=== PATIENT | male | born 1970 | race Caucasian/White ===

== ENCOUNTER 2020-09-04 08:12 | Outpatient (NON) | payer BC, SELFPAY ==
[2020-09-05 00:37] LABS: SARS-CoV-2 RNA PCR Negative
== END 2020-09-04 08:13 ==
DX: R09.89 Other specified symptoms and signs involving the circulatory and respiratory systems (principal); Z20.828 Contact with and (suspected) exposure to other viral communicable diseases
CPT/HCPCS: 87635; C9803; U0003

== ENCOUNTER 2021-05-15 12:50 | Emergency (ER) | payer OTHER, SELFPAY ==
--- NOTE | ~2021-05-15 | XR_ITS ---
EXAMINATION: XR chest 1V portable 05/15/2021 13:15 INDICATION: Chest contusion. 4 foot fall. PROCEDURE: AP portable chest COMPARISON: 12/27/2015 FINDINGS: The lungs are clear. The cardiomediastinal silhouette is within normal limits. There are no pleural effusions. There is no pneumothorax suspected. Chronic healed right midclavicular fractu re. There are scattered calcified granulomata. IMPRESSION: 1: NO ACUTE CARDIOPULMONARY DISEASE. Reviewed, dictated and finalized at location A.
[2021-05-15 12:52] VITALS: BP 122/76; PULSE 58; RESP 12; O2SAT 99
[2021-05-15 13:02] VITALS: BP 119/72; PULSE 55; RESP 16; O2SAT 100
--- NOTE | 2021-05-15 13:16 | ECG_ITS ---
Measurements Intervals [place] Rate: 58 P: 32 [place]: 149 QRS: 15 QRSD: 90 T: 23 QT: 403 QTc: 396 Interpretive Statements SINUS BRADYCARDIA BASELINE ARTIFACT- I, III BORDERLINE ECG Electronically Signed On 05-15-2021 13:31:57 CDT by Aj Silver D.O.
[2021-05-15 13:17] VITALS: BP 115/73; PULSE 61; RESP 16; O2SAT 100
--- NOTE | 2021-05-15 13:30 | PC.NURSE ---
EDP De La Vega notified of patient's presentation. Per EDP Ceferino via verbal order read back, order chest CT with contrast and troponin baseline.
--- NOTE | 2021-05-15 13:38 | ED.HEATRA ---
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 Patient denies other injuries. Patient reports the height of the fall is approximately 8 feet. MD Complaint: head injury Related Data Allergies Allergy/AdvReac Type Severity Reaction Status Date / Time No Known Allergies Allergy Unverified 12/27/15 09:54 Review of Systems Review of Systems: Narrative: CONSTITUTIONAL: Denies fever, chills, or sweats. EYES: Denies visual changes, redness, or discharge. ENT: Denies rhinorrhea, congestion, sore throat, or otalgia. CARDIOVASCULAR: Denies chest pain, palpitations, or edema. RESPIRATORY: Denies cough or dyspnea. GASTROINTESTINAL: Denies abdominal pain, nausea, vomiting, or diarrhea. GENITOURINARY: Denies dysuria or hematuria. SKIN: Denies rash or itching. MUSCULOSKELETAL: Denies back pain, joint pain, or myalgia. NEUROLOGIC: Denies headache, numbness, or weakness. PSYCHIATRIC: Denies anxiety or depression. PMFSH Family History Family History Other Family history of cardiovascular disease Hypertension Social History Social History Smoking status: Never smoker Alcohol intake: current Exam Narrative: Exam Narrative: General appearance: Well-developed, well-nourished, looks in pain Skin: Normal color, left forehead abrasion, laceration Head: Normocephalic, left forehead abrasion/laceration Eyes: Clear conjunctiva ENT: Oropharynx normal, ears normal, nose normal Neck: Supple, nontender Chest and respiratory: Airway patent, no respiratory distress, no accessory muscle use, severe diffuse tenderness left chest, plus bruises and abrasions Heart: Regular rate/rhythm Abdomen: Soft, nontender, no organomegaly, quiet bowel sounds Vascular: Normal peripheral pulses, normal capillary refill. Musculoskeletal: Normal range of motion, nontender back Neurologic: Alert and oriented ?3, CYTOGENETIC TECHNOLOGIST is normal as tested, no gross motor deficit Course Course Emergency Course: Stable Consultations Consultation #1: , [facility] ED, who accepted patient transfer Date: 05/15/21 Time: 13:57 Vital Signs Vital signs: Vital Signs Pulse Rate 58 L 05/15/21 12:52 Respiratory Rate 12 05/15/21 12:52 Blood Pressure 122/76 05/15/21 12:52 Pulse Oximetry 99 05/15/21 12:52 Pulse Rate 58 L 05/15/21 12:52 Respiratory Rate 12 05/15/21 12:52 Blood Pressure 122/76 05/15/21 12:52 Pulse Oximetry 99 05/15/21 12:52 MDM - Head Injury Imaging Data Radiologist's impression: Impressions Chest X-Ray 05/15/21 13:23 IMPRESSION: 1: NO ACUTE CARDIOPULMONARY DISEASE. ECG Data EKG #1: Attestation: I personally reviewed and interpreted this ECG as follows: ECG completion date: 05/15/21 ECG completion time: 13:48 Prior ECG tracings: not available for review Interpretation: Sinus bradycardia at 58 bpm, borderline EKG. Critical Care Time Critical Care Time Critical Care Time: Yes Total Critical Care Time: 30 Di
[2021-05-15 13:41] LABS: Basophils Absolute Auto 0.1 K/mm3 (0.0-0.1); Basophils Percent Auto 0.6 % (0.2-1.2); Eosinophils Absolute Auto 0.1 K/mm3 (0-0.3); Eosinophils Percent Auto 1.3 % (0-4.4); Hematocrit 39.2 % (42.0-52.0); Hemoglobin 11.8 g/dL (14.0-18.0); Immature Granulocyte Absolute 0.04 K/mm3 (0.00-0.031); Immature Granulocyte Percent A 0.5 % (0-0.5); Lymphocytes Absolute Auto 3.02 K/mm3 (0.9-3.2); Lymphocytes Percent Auto 35.3 % (18.3-44.2); Mean Corpuscular HGB Conc 30.1 g/dl (32-36); Mean Corpuscular Hemoglobin 24.8 pg (26-34); Mean Corpuscular Volume 82.4 fl (80-100); Mean Platelet Volume 10.4 fl (7.4-10.4); Monocytes Absolute Auto 0.8 K/mm3 (0.1-0.6); Neutrophils Absolute Auto 4.6 K/mm3 (1.3-6.7); Neutrophils Percent Auto 53.3 % (45.5-73.1); Platelet Count Result 250 k/mm3 (150-375); Red Blood Count 4.76 M/mm3 (4.6-6.20); Red Cell Distribution Width 19.9 % (11.5-14.5); White Blood Count 8.6 K/mm3 (4.5-10.0)
[2021-05-15] MEDS: ONDANSETRON INJ 4 MG/2 ML VIAL IV PUSH (13:43)
[2021-05-15] MEDS: MORPHINE SULFATE (*CRX) 4 MG/ML INJ IV PUSH (13:44)
[2021-05-15 13:51] LABS: Anion Gap 6 mmol/L (8-16); Blood Urea Nitrogen 21 mg/dL (9-20); Calcium 9.2 mg/dL (8.4-10.2); Carbon Dioxide 25 mmol/L (22-30); Chloride 106 mmol/L (98-107); Estimated CRCL calculation 82 ml/min; Estimated Glomerular Filt Rate > 60; Glucose 108 mg/dL (75-110); Potassium 4.5 mmol/L (3.4-5.0); Sodium 137 mmol/L (137-145)
[2021-05-15 13:52] VITALS: BP 135/82; PULSE 71; RESP 12; O2SAT 100
--- NOTE | 2021-05-15 13:58 | PC.NURSE ---
Patient states he received a tetanus shot last year. TURNER De La Vega notified.
[2021-05-15 13:59] VITALS: PULSE 72
[2021-05-15 14:03] LABS: Troponin I < 0.012 ng/mL (0.000-0.034)
[2021-05-15 14:06] VITALS: BP 135/82; PULSE 62; RESP 16; O2SAT 99
== END 2021-05-15 14:06 | disposition short-term general hospital (02) ==
PROVIDERS: Emergency Provider Emergency Medicine
DX: S09.90XA Unspecified injury of head, initial encounter (principal); S29.8XXA Other specified injuries of thorax, initial encounter; R00.1 Bradycardia, unspecified; W24.0XXA Contact with lifting devices, not elsewhere classified, initial encounter
CPT/HCPCS: 36415; 71045; 80048; 84484; 85025; 93005; 96374; 96375; 99285; J2270; J2405; L0140

== ENCOUNTER 2023-06-20 04:30 | Observation (INO) | payer OTHER, SELFPAY ==
[2023-06-20] VITALS (31 sets, daily range): BP systolic 139–179; BP diastolic 68–107; PULSE 62–86; RESP 11–26; TEMP 36.1–36.9; O2SAT 91–100; BMI 34.0
--- NOTE | ~2023-06-20 | CT_ITS ---
EXAMINATION: CT abdomen pelvis w con DATE: 06/20/2023 06:13 INDICATION: Right upper abdominal pain TECHNIQUE: Computed tomography (CT) of the abdomen and pelvis was performed with 100 cc Omnipaque 350 intravenous contrast. The dose-length product was 1264.92 mGy-cm. Automated exposure control and ite rative reconstruction technique were employed. COMPARISON: CT pelvis dated 06/02/2011 FINDINGS: There is dependent atelectasis. Heart size normal. No significant pleural or pericardial ef fusion. Mildly enlarged retrocrural lymph node on the left. There are gallstones. There are stones in the cystic duct. No significant biliary dilatation. The liver, spleen, pancreas, adrenal glands and kidneys are unremarkable. Small fat-containing umbilical hernia. Normal appendix. Nonobstructive lili l pattern. No free air or free fluid. No abnormal pelvic masses or fluid collections. Moderate lumbar spondylosis. Mild osteoarthritis of the hips. IMPRESSION: 1. Cholelithiasis involving the gallbladder and cystic duct. Reviewed, dictated and finalized at location A.
--- NOTE | ~2023-06-20 | US_ITS ---
US abdomen limited INDICATION: Right upper quadrant abdominal pain PROCEDURE: Realtime right upper abdominal ultrasound. COMPARISON: No prior studies for comparison. FINDINGS: The pancreas is normal without focal mass or pancreatic ductal dilation. Liver echotexture is increased, consistent with fatty infiltration. There is normal directional flow in the portal ve in. Gallbladder wall is thickened. No definite gallstones or pericholecystic fluid. Common bile duct is not visualized. No sonographic Nicolas's sign. IMPRESSION: 1: Hepatic steatosis. 2: Gallbladder wall thickening. This could indicate interstitial edema, chronic liver disease or microsoft bi developer chris cholecystitis. Reviewed, dictated and finalized at location A. IMPRESSION: 1: Hepatic steatosis. 2: Gallbladder wall thickening. This could indicate interstitial edema, chronic liver disease or chronic cholecystitis.
--- NOTE | ~2023-06-20 | XR_ITS ---
XR chest 2V 06/20/2023 06:14 Indication: Chest pain Procedure: 2 view chest Comparison: 05/15/2021 Findings: Heart size normal. No focal air space disease, pulmonary edema, pleural effusion or suspect ed pneumothorax. Chronic healed right clavicular fracture. Chronic left acromioclavicular dislocation . No acute osseous abnormality. Impression: 1: No acute cardiopulmonary disease. Reviewed, dictated and finalized at location A. Impression: 1: No acute cardiopulmonary disease.
--- NOTE | 2023-06-20 04:37 | ECG_ITS ---
Measurements Intervals [place] Rate: 63 P: 26 [place]: 157 QRS: 1 QRSD: 97 T: 25 QT: 377 QTc: 386 Interpretive Statements SINUS RHYTHM NORMAL ECG COMPARED TO ECG 05/15/2021 13:16:34 SINUS RHYTHM NOW PRESENT Electronically Signed On 06-20-2023 7:18:29 CDT by Aj Silver D.O.
[2023-06-20] MEDS: ASPIRIN 81 MG CHEWABLE TABLET 324 MG PO (04:56)
[2023-06-20] MEDS: MORPHINE SULFATE (*CRX) 4 MG/ML INJ IV PUSH (04:56)
[2023-06-20] MEDS: ONDANSETRON INJ 4 MG/2 ML VIAL IV PUSH (04:57)
[2023-06-20] MEDS: SODIUM CHLORIDE 0.9% IV 1,000 ML 999 ML IV CONT ×2 (04:57→06:59)
--- NOTE | 2023-06-20 04:57 | ED.GENADULT ---
HPI - General Adult General Chief complaint: Chest Pain <Hai Peterson MD - Last Filed: 06/20/23 05:00> Stated complaint: chest pain <Hai Peterson MD - Last Filed: 06/20/23 05:00> Time Seen by Provider: 06/20/23 04:42 <Hai Peterson MD - Last Filed: 06/20/23 05:00> History of Present Illness HPI narrative: Patient 52-year-old gentleman presents general chief complaint of epigastric/chest pain. Patient reports that this evening he started having pain in the epigastric region reports that he had nausea with it vomiting. Patient reports no prior history of cardiac disease. Sitting interval noted palpation <Hai Peterson MD - Last Filed: 06/20/23 05:00> Related Data Home medications: Home Medications Medication Instructions Recorded Confirmed No Home Medications 06/20/23 06/20/23 <Hai Peterson MD - Last Filed: 06/20/23 05:00> Allergies/adverse reactions: Allergies Allergy/AdvReac Type Severity Reaction Status Date / Time No Known Allergies Allergy Verified 06/20/23 04:30 <Hai Peterson MD - Last Filed: 06/20/23 05:00> Review of Systems Review of Systems: A 10 system review of systems was completed on the patient and is negative except for what is stated in the HPI. Nursing and ancillary documentation was reviewed. <Hai Peterson MD - Last Filed: 06/20/23 05:00> [facility] Family History Family History: Family History Other Family history of cardiovascular disease Hypertension <Hai Peterson MD - Last Filed: 06/20/23 05:00> Social History Social History: Social History Smoking status: Never smoker Alcohol intake: current Lack of Transportation: No Lack of Food: Never True Current Housing: I Have Housing Concerned About Future Housing: No Difficulty Paying Gas/Electric Bills: No Difficulty Paying for Meds: No Currently Unemployed: No Education: Trade/Vocational Certificate Difficulty w/ Childcare or Family Care: No Spiritual care concerns: No <Hai Peterson MD - Last Filed: 06/20/23 05:00> Exam Narrative: GENERAL: Well-appearing, well-nourished, and in no acute distress. HEAD: Normocephalic, atraumatic. EYES: PERRLA and EOMI. ENT: Nares clear, no rhinorrhea or epistaxis. Mucous membranes moist. NECK: Supple. CHEST: Clear to auscultation. No respiratory distress. HEART: Regular rate and rhythm. No murmur heard. Normal peripheral pulses. ABDOMEN: Soft, tender to palpation in the epigastric region, nondistended, normal active bowel sounds. EXTREMITIES: Normal range of motion. No edema. SKIN: Warm, dry, no rash. NEURO: No focal deficits. Alert and oriented x3. PSYCH: Normal mood and affect. <Hai Peterson MD - Last Filed: 06/20/23 05:00> Course Reevaluation(s) Reevaluation #1: Patient care was signed out to me by Dr. Peterson with CT pending. CT scan did show evidence of cholelithiasis. Patient reports his pain is very poorly controlled. Patient was offered pain medication for home and close outpatient follow-up but patient prefers to be admitted for pain control. I discussed the case with the surgeon on-call and he was also comfortable with the patient attempting to go home with pain control. I attempted more medications for pain control and patient states that his pain is still poorly controlled. Surgery was recalled and patient was admitted to Dr. Vora. Patient was stable at time of admission. <Jhonatan Clayton MD - Last Filed: 06/20/23 15:02> Vital Signs Vital signs: Vital Signs Temperature 97.0 F L 06/20/23 04:37 Pulse Rate 67 06/20/23 04:37 Respiratory Rate 18 06/20/23 04:37 Blood Pressure 147/107 H 06/20/23 04:37 Pulse Oximetry 100
[2023-06-20 05:08] LABS: Basophils Absolute Auto 0.1 K/mm3 (0.0-0.1); Basophils Percent Auto 0.5 % (0.2-1.2); Eosinophils Absolute Auto 0.1 K/mm3 (0-0.3); Hematocrit 48.4 % (42.0-52.0); Hemoglobin 16.3 g/dL (14.0-18.0); Immature Granulocyte Absolute 0.05 K/mm3 (0.00-0.031); Immature Granulocyte Percent A 0.5 % (0-0.5); Lymphocytes Absolute Auto 2.55 K/mm3 (0.9-3.2); Lymphocytes Percent Auto 26.4 % (18.3-44.2); Mean Corpuscular HGB Conc 33.7 g/dl (32-36); Mean Corpuscular Hemoglobin 32.3 pg (26-34); Mean Platelet Volume 10.6 fl (7.4-10.4); Monocytes Percent Auto 9.8 % (2.6-8.5); Neutrophils Percent Auto 61.8 % (45.5-73.1); Platelet Count Result 207 k/mm3 (150-375); Red Blood Count 5.04 M/mm3 (4.6-6.20); Red Cell Distribution Width 13.9 % (11.5-14.5); White Blood Count 9.7 K/mm3 (4.5-10.0)
[2023-06-20] MEDS: HYDROmorphone HCL INJ (*CRX) 1 MG/ML SYR IV PUSH ×5 (05:15→16:24)
[2023-06-20 05:19] LABS: Alanine Aminotransferase 33 U/L (6-50); Albumin Level 4.7 g/dL (3.5-5.1); Alkaline Phosphatase 104 U/L (38-126); Anion Gap 10 mmol/L (8-16); Aspartate Amino Transferase 31 U/L (17-59); Bilirubin,Total 1.1 mg/dL (0.2-1.3); Blood Urea Nitrogen 25 mg/dL (9-20); Calcium 9.1 mg/dL (8.4-10.2); Carbon Dioxide 27 mmol/L (22-30); Chloride 101 mmol/L (98-107); Estimated CRCL calculation 90 ml/min; Estimated Glomerular Filt Rate > 60; Glucose 120 mg/dL (65-110); Lipase 58 U/L (23-300); Potassium 4.2 mmol/L (3.4-5.0); Sodium 138 mmol/L (137-145)
[2023-06-20 05:29] LABS: Troponin I < 0.012 ng/mL (0.000-0.034)
[2023-06-20 06:12] LABS: Prothrombin Time 13.5 Seconds (11.1-14.7)
[2023-06-20 06:13] LABS: Partial Thromboplastin Time 26.4 SECONDS (22.3-36.8)
[2023-06-20] MEDS: HYDROmorphone HCL INJ (*CRX) 1 MG/ML SYR (06:58)
--- NOTE | 2023-06-20 07:02 | PC.NURSE ---
pts pain is difficult to control
[2023-06-20] MEDS: HYDROmorphone HCL INJ (*CRX) 1 MG/ML SYR 0.5 MG IV PUSH (10:09)
--- NOTE | 2023-06-20 13:00 | ADMGEN ---
This patient, Fransisco Allen, was admitted to 3 [facility] Surg Room 331-01 at 1121. Patient/family oriented to hospital policies and general routines including ID bracelet, bed and alarms, visiting hours, pain management, procedures, bathroom and other care routines, personal items, smoking policy, room service/diet, and visiting hours. Information on how to activate the Rapid Response Team has been discussed. Patient/Family are encouraged to report perceived risks to care and to ask questions if they do not understand what they are told or what they should do.
[2023-06-20] MEDS: PIPERACILLN/TAZ 3.375GM/NS50ML 3.375 GM/50 ML BAG IVPB ×2 (16:24→20:48)
[2023-06-20] MEDS: LACTATED RINGERS 1,000 ML 130 ML IV CONT (16:25)
[2023-06-20] MEDS: FAMOTIDINE 20 MG/2 ML VIAL IV PUSH (20:49)
[2023-06-21] VITALS (13 sets, daily range): BP systolic 110–152; BP diastolic 58–77; PULSE 60–71; RESP 12–18; TEMP 35.7–37.7; O2SAT 94–100
[2023-06-21] MEDS: LACTATED RINGERS 1,000 ML 130 ML IV CONT (01:13)
[2023-06-21] MEDS: PIPERACILLN/TAZ 3.375GM/NS50ML 3.375 GM/50 ML BAG IVPB ×2 (03:39→09:36)
[2023-06-21 07:22] LABS: Basophils Percent Auto 0.5 % (0.2-1.2); Eosinophils Absolute Auto 0.1 K/mm3 (0-0.3); Hematocrit 44.9 % (42.0-52.0); Hemoglobin 15.1 g/dL (14.0-18.0); Immature Granulocyte Absolute 0.03 K/mm3 (0.00-0.031); Immature Granulocyte Percent A 0.4 % (0-0.5); Lymphocytes Absolute Auto 2.36 K/mm3 (0.9-3.2); Lymphocytes Percent Auto 29.6 % (18.3-44.2); Mean Corpuscular HGB Conc 33.6 g/dl (32-36); Mean Corpuscular Hemoglobin 32.3 pg (26-34); Mean Corpuscular Volume 96.1 fl (80-100); Mean Platelet Volume 10.8 fl (7.4-10.4); Monocytes Absolute Auto 0.9 K/mm3 (0.1-0.6); Monocytes Percent Auto 10.7 % (2.6-8.5); Neutrophils Absolute Auto 4.6 K/mm3 (1.3-6.7); Neutrophils Percent Auto 57.8 % (45.5-73.1); Platelet Count Result 180 k/mm3 (150-375); Red Blood Count 4.67 M/mm3 (4.6-6.20); Red Cell Distribution Width 13.6 % (11.5-14.5)
[2023-06-21 07:26] LABS: Lipase 30 U/L (23-300)
--- NOTE | 2023-06-21 07:52 | WPDHPUPDATE1 ---
History and Physical Update Update Date/Time: 06/21/23 07:52 History and Physical has been reviewed, including an updated exam of the patient. There are NO changes in the patient's condition. Risks, benefits, and alternatives have been discussed and questions answered. Patient agrees to proceed with procedure.
--- NOTE | 2023-06-21 07:53 | PM.PNGS ---
Progress Note: A&P Assessment and Plan (1) Cholelithiasis: Code(s): K80.20 - Calculus of gallbladder without cholecystitis without obstruction Status: Acute Assessment and Plan: Patient was admitted to the hospital due to intractable epigastric right upper quadrant pain. Imaging showed no obvious acute cholecystitis but there was some thickening of the gallbladder wall suggestive of possible chronic inflammatory changes versus early acute cholecystitis. Gallstones were noted on CT scan but not on ultrasound. Liver enzymes are normal. We will go ahead proceed without a laparoscopic cholecystectomy, possible open cholecystectomy today. Risks, benefits, indications, and expected outcomes were discussed with the patient and/or family members. Specific risks to include bleeding and possible need for blood transfusion, infection, bile leak, injury to other organs, common bile duct injury, and conversion to open cholecystectomy has been discussed. I have answered all their questions and they agreed to proceed with surgery as outlined above. (2) Biliary colic: Code(s): K80.50 - Calculus of bile duct without cholangitis or cholecystitis without obstruction Status: Acute Assessment and Plan: Due to gallstones. As above Subjective Subjective Date/Time Seen: 06/21/23 07:53 Interval history: Patient is better today but still having some right upper quadrant pain. No nausea or vomiting overnight. No fever overnight. White blood cell count is normal and liver enzymes are normal today. Review of Systems Review of Systems: The remainder of the review of systems to include constitutional, HEENT, cardiovascular, respiratory, GI, , integumentary, musculoskeletal, endocrine, immunologic, hematologic, psychiatric, and neurologic are all negative except for which is mentioned above in the HPI. Exam Const: General: comfortable and no acute distress HENMT: Ears: TM's normal bilaterally Face/Nose/Sinus: Normal nares present Mouth: Yes moist mucous membranes Eyes: General: appearance normal, both eyes and all related structures Sclera: sclerae normal Pupils: Equal, round and reactive pupils present EOM: EOMs intact bilaterally Neck: Neck: supple and no JVD Resp: Effort & Inspection: normal respiratory effort Auscultation: clear to auscultation bilaterally Cardio: Rate: regular rate Rhythm: regular rhythm GI: GI Palp: Yes Soft to palpation Other: Mild epigastric and right upper quadrant tenderness. Gallbladder is not palpable. No generalized peritoneal signs. Skin: General skin exam: normal color and no rashes or lesions noted Neuro: General: gait normal Speech: normal speech Motor exam (neuro): 5/5 motor strength present throughout and Motor abnormalites present Sensory Exam: normal sensation Extrem: General: normal to inspection Psych: Mental Status: mental status grossly normal Affect: normal affect Objective Data Vital Signs Vital Signs: Vital Signs - 24 hr 06/20/23 08:00 06/20/23 08:15 06/20/23 08:38 Temperature Pulse Rate 68 70 76 Respiratory Rate 12 12 14 Blood Pressure Pulse Oximetry 98 96 93 Oxygen Delivery 06/20/23 08:45 06/20/23 09:00 06/20/23 09:20 Temperature Pulse Rate 76 71 67 Respiratory Rate 14 13 18 Blood Pressure Pulse Oximetry 91 94 97 Oxygen Delivery 06/20/23 09:30 06/20/23 09:45 06/20/23 10:00 Temperature Pulse Rate 69 68 64 Respiratory Rate 14 14 14 Blood Pressure 155/91 H Pulse Oximetry 99 99 99 Oxygen Delivery 06/20/23 11:04 06/20/23 11:12 06/20/23 11:40 Temperature 36.4 C Pulse Rate 64 86 72 Respiratory Rate 14 16 16 Blood Pressure 159/74 H 159/74 H 140/68 Pulse Oximetry 95 99 99 Oxygen Delivery 06/20/23 15:00 06/20/23 16:49 06/20/23 20:00 Temperature 36.6 C Pulse Rate 63 Respiratory Rate 20 Blood Pressure 147/80 H Pulse Oximetry 98 Oxygen Delivery Room Air
--- NOTE | 2023-06-21 08:44 | WPDANESEPPF ---
Anes - Initial Pre Proc Eval Procedure: Operation Date: 06/21/23 08:30 Proposed Procedures p Laparoscopic Cholecystectomy - Washington Vora MD Date/Time: 06/21/23 08:44 Surgeon: Washington Vora MD Pre Op Diagnosis: Biliary Colic, Cholelithiasis Patient Data Age: 52 Gender: M Height: 1.83 m Weight: 113.6 kg Last Vital Signs Temp 36.5 C 06/21/23 06:00 Pulse 62 06/21/23 06:00 Resp 18 06/21/23 06:00 BP 152/73 H 06/21/23 06:00 Pulse Ox 99 06/21/23 06:00 O2 Del Method Room Air 06/20/23 20:00 Allergies Allergy/AdvReac Type Severity Reaction Status Date / Time No Known Allergies Allergy Verified 06/20/23 04:30 Home Medications Medication Instructions Recorded Confirmed Type No Home Medications 06/20/23 06/20/23 History Laboratory Tests 06/21/23 06:17 WBC 8.0 K/mm3 (4.5-10.0) RBC 4.67 M/mm3 (4.6-6.20) Hgb 15.1 g/dL (14.0-18.0) Hct 44.9 % (42.0-52.0) MCV 96.1 fl (80-100) MCH 32.3 pg (26-34) MCHC 33.6 g/dl (32-36) RDW 13.6 % (11.5-14.5) Plt Count 180 k/mm3 (150-375) MPV 10.8 H fl (7.4-10.4) Immature Gran % (Auto) 0.4 % (0-0.5) Neut % (Auto) 57.8 % (45.5-73.1) Lymph % (Auto) 29.6 % (18.3-44.2) [place] % (Auto) 10.7 H % (2.6-8.5) Eos % (Auto) 1.0 % (0-4.4) Baso % (Auto) 0.5 % (0.2-1.2) Lymph # (Auto) 2.36 K/mm3 (0.9-3.2) [place] # (Auto) 0.9 H K/mm3 (0.1-0.6) Eos # (Auto) 0.1 K/mm3 (0-0.3) Baso # (Auto) 0.0 K/mm3 (0.0-0.1) Abs Immat Gran (auto) 0.03 K/mm3 (0.00-0.031) Absolute Neuts (auto) 4.6 K/mm3 (1.3-6.7) Absolute Nucleated RBC 0.0 K/mm3 (0.0-0.012) Nucleated RBC % 0.0 % (0.0-0.2) Lipase 30 U/L (23-300) Blood Type O Positive Antibody Screen Negative Patient hx anesthesia problems: none Family hx anesthesia problems: none Results Review: All pre-operative results and documents have been reviewed as part of the pre-operative evaluation. [facility] Family History Family History Other Family history of cardiovascular disease Hypertension Social History Social History Smoking status: Never smoker Alcohol intake: current Lack of Transportation: No Lack of Food: Never True Current Housing: I Have Housing Concerned About Future Housing: No Difficulty Paying Gas/Electric Bills: No Difficulty Paying for Meds: No Currently Unemployed: No Education: Trade/Vocational Certificate Difficulty w/ Childcare or Family Care: No Spiritual care concerns: No Anes - Eval Final PreProcedure Day of Procedure 06/21/23 08:44 Patient weight: obese Heart: regular rate and rhythm Lungs: clear to auscultation Airway: Mallampati scale class II Neurological: alert and oriented Last oral intake: >/= 8 hours ASA classification: II Emergent: no Anesthetic plan: proceed Anesthesia type and monitoring: general ETT and standard monitoring Results Review: All pre-operative results and documents have been reviewed as part of the pre-operative evaluation. Informed Consent: The patient's anesthetic plan and its attendant risks and benefits were discussed with the patient/family/POA. Questions were solicited and answers provided to the satisfaction of the patient/family/POA.
[2023-06-21] MEDS: BUPivacaine HCL 0.5% PF 30 ML VIAL 15 ML INFILTRATE (09:38)
[2023-06-21] MEDS: LIDO 1%/EPINEPHRINE 1:100,000 50 ML VIAL 15 ML INFILTRATE (09:40)
[2023-06-21] MEDS: KETOROLAC 30 MG/ML VIAL (*BKC) IV PUSH (10:18)
[2023-06-21] MEDS: LACTATED RINGERS 1,000 ML 30 ML IV CONT (10:29)
--- NOTE | 2023-06-21 10:37 | W.PM.PROC2 ---
Procedure Note - Detailed Date of Procedure 06/21/23 Pre-op Diagnosis Biliary Colic, Cholelithiasis Post-op Diagnosis Other (Acute cholecystitis secondary to cholelithiasis) Procedure Performed Laparoscopic cholecystectomy Surgeon Washington Vora MD Dobby Loom Fixer Sheila Hendricks, ENERGY TRADING ANALYST Anesthesia General Indications Patient is a 52-year-old white male admitted to the hospital yesterday with a several hour history of severe epigastric right upper abdominal pain. His pain was intractable in the emergency room even though he had a normal white blood cell count and liver enzymes were normal. CT scan did show gallstones within the gallbladder abdominal ultrasound showed some mild gallbladder wall thickening but no obvious evidence of acute cholecystitis. He presents now for an urgent laparoscopic cholecystectomy. Findings The gallbladder was distended and mildly edematous. Definitely was some degree of acute cholecystitis. Patient had a large amount of visceral adipose tissue and the gallbladder was enveloped within a layer of fatty tissue which was not the omentum. Description of Procedure After informed consent was obtained patient brought to the operating room was placed supine position and then general endotracheal anesthesia was administered. The abdomen was then prepped and draped in usual sterile fashion. A time-out was performed correctly identifying the patient as well as procedure to be performed he was already on scheduled IV antibiotics. I then proceeded to enter the abdomen left upper quadrant using 5mm Optiview port. Once inside the abdomen insufflated to adequate pneumoperitoneum of 15mm of CO2. No adhesions around the umbilicus I placed a 5mm periumbilical trocar port as well as a 10mm epigastric trocar port and 2 5mm right lateral subcostal trocar ports all under direct visualization. The omentum was initially draped over the right lobe of the liver and the gallbladder. This was then bluntly retracted down to the lower portions of the abdomen I could finally see the gallbladder. The gallbladder was distended and had some edema of the gallbladder wall but also a layer of visceral adipose tissue developing the gallbladder which was not the omentum. With laparoscopic grasper was able to hold the gallbladder at the dome and elevated gallbladder with a right half liver towards the right shoulder. A 2nd grasper used hold gallbladder at the infundibulum. I then proceeded to strip down the generous visceral adipose tissue and peritoneum off of the infundibular gallbladder. The cystic duct was then identified was dissected out circumferentially. Cystic artery identified and dissected out circumferentially as well. Posterior wall the gallbladder infundibulum dissected free of the liver internal critical view was obtained. At this point I placed 2 clips proximal cystic duct and 2 clips distally high on infundibular gallbladder. The cystic duct was divided with Endo Paddy. In similar fashion cystic artery and clipped and divided as well. The gallbladder was then resected off the liver electrocautery. There was some spillage of bile during this dissection. Once the gallbladder was completely freed from the liver is placed into an Endo-Catch bag and brought out through the epigastric port site. The gallbladder and contents were sent to pathology for examination. I then irrigated out the right upper quad the abdomen gallbladder fossa copious sterile saline solution. An aspirated the fluid until all the bilious fluid was aspirated. I checked once more hemostasis was good liver bed. I then removed all the trocar ports under visualization all port sites appeared hemostatic. I then allowed the abdomen decompressed. I then irrigated out the port sites sterile saline solution and then the port site at the epigastric region the abdomen was then closed utilizing 0 Vicryl suture placed in a figure-eight fashion. The skin edges all the port sites were approximated
--- NOTE | 2023-06-21 10:43 | PM.IMHP ---
H&P: HPI History of Present Illness Date/Time: 06/20/23 10:43 Chief Complaint: Right upper quadrant abdominal pain, cholelithiasis Narrative: Patient is a 52 year white male presents to the emergency room with Willian history of severe epigastric and right upper quadrant abdominal pain. He also had episodes of nausea vomiting. He admitted to having some episodes of right upper quadrant abdominal pain associated with eating over the past several weeks to be almost up to a year. Today was the worst that he has had pain it did not resolve. Workup in the emergency room showed normal white blood cell count. Liver enzymes were normal. CT scan abdomen pelvis was performed showed a dilated appendix with gallstones but no obvious evidence of gallbladder wall thickening or acute cholecystitis. Abdominal ultrasound was then performed showing gallbladder wall thickening suggestive of acute cholecystitis. He was given multiple doses IV pain medications in the emergency room and his pain was still uncontrolled. For this reason was admitted to the hospital for IV pain medications and IV antibiotics. Review of Systems Review of Systems: The remainder of the review of systems to include constitutional, HEENT, cardiovascular, respiratory, GI, , integumentary, musculoskeletal, endocrine, immunologic, hematologic, psychiatric, and neurologic are all negative except for which is mentioned above in the HPI. [facility] Family History Family History Other Family history of cardiovascular disease Hypertension Social History Social History Smoking status: Never smoker Alcohol intake: current Lack of Transportation: No Lack of Food: Never True Current Housing: I Have Housing Concerned About Future Housing: No Difficulty Paying Gas/Electric Bills: No Difficulty Paying for Meds: No Currently Unemployed: No Education: Trade/Vocational Certificate Difficulty w/ Childcare or Family Care: No Spiritual care concerns: No Meds Home Medications and Allergies Home Medications Medication Instructions Recorded Confirmed Type No Home Medications 06/20/23 06/20/23 History Allergies Allergy/AdvReac Type Severity Reaction Status Date / Time No Known Allergies Allergy Verified 06/20/23 04:30 Vital Signs Vital Signs - 24 hr 06/20/23 11:04 06/20/23 11:12 06/20/23 11:40 Temperature 36.4 C Pulse Rate 64 86 72 Respiratory Rate 14 16 16 Blood Pressure 159/74 H 159/74 H 140/68 Pulse Oximetry 95 99 99 Oxygen Delivery Oxygen Flow Rate 06/20/23 15:00 06/20/23 16:49 06/20/23 20:00 Temperature 36.6 C Pulse Rate 63 Respiratory Rate 20 Blood Pressure 147/80 H Pulse Oximetry 98 Oxygen Delivery Room Air Room Air Oxygen Flow Rate 06/20/23 22:00 06/21/23 06:00 06/21/23 10:29 Temperature 36.9 C 36.5 C 37.7 C H Pulse Rate 70 62 60 Respiratory Rate 20 18 12 Blood Pressure 161/75 H 152/73 H 110/58 L Pulse Oximetry 99 99 98 Oxygen Delivery Simple Face Mask Oxygen Flow Rate 8 06/21/23 10:35 06/21/23 08:00 Temperature Pulse Rate 65 Respiratory Rate 12 Blood Pressure 124/64 Pulse Oximetry 100 Oxygen Delivery Simple Face Mask Room Air Oxygen Flow Rate 10 H&P: Results Labs Labs: Short CBC 06/21/23 Range/Units 06:17 WBC 8.0 (4.5-10.0) K/mm3 Hgb 15.1 (14.0-18.0) g/dL Hct 44.9 (42.0-52.0) % Plt Count 180 (150-375) k/mm3 Assessment and Plan Assessment and plan (1) Cholelithiasis: Code(s): K80.20 - Calculus of gallbladder without cholecystitis without obstruction Status: Acute Assessment and Plan: Patient has gallstones noted on CT scan. Objective results to include CT scan imaging and labs results show no obvious objective evidence of acute cholecystitis however he is having severe intractable pain in the right upper qu
[2023-06-21] MEDS: FAMOTIDINE 20 MG TABLET PO (12:21)
[2023-06-22 00:26] VITALS: BP 131/66; PULSE 64; RESP 14; TEMP 37; O2SAT 97
[2023-06-22 05:00] VITALS: BP 152/77; PULSE 58; RESP 14; TEMP 36.3; O2SAT 100
--- NOTE | 2023-06-22 08:14 | PM.DS ---
DS: Admitting Diagnosis Discharge Date June 22, 2023 Admitting Diagnosis Biliary colic and cholelithiasis DS: Discharge Diagnosis Discharge Diagnosis (1) Acute cholecystitis due to biliary calculus: Code(s): K80.00 - Calculus of gallbladder with acute cholecystitis without obstruction Status: Acute Assessment and Plan: Acute cholecystitis resolved after laparoscopic cholecystectomy. Doing well to be discharged home today. No need for antibiotics at home after surgery. DS: Summary Hospital Course Reason for hospitalization: Cholecystitis Hospital Course: Patient can the [facility] on June 20, 2023 complaining of severe right upper quadrant and epigastric abdominal pain. Cardiac workup was negative the emergency room. He stated that having pain for several months intermittently in this area but not enough to bring him to the emergency room. Workup in the emergency room showed gallstones by CT scan abdominal ultrasound showed thickening of the gallbladder wall suggesting possible acute cholecystitis. Liver enzymes were normal and white blood cell count was normal because he was having intractable pain in the emergency room after multiple doses of Dilaudid he was admitted to the hospital. He continued to doses of Dilaudid in the hospital was kept NPO and start IV and IV fluids. He was started on IV antibiotics. The day after admission he was then taken to the operating room where he was underwent a uncomplicated laparoscopic cholecystectomy. He did have mild acute cholecystitis. Postoperatively his course and recovery was uneventful he was transferred back to surgical floor. On surgical floor he tolerated dilator at that evening without nausea. He did have pain and is incisions but refused to take any narcotic pain medications. He was able to get up and ambulate to the bathroom without difficulty. Postop day 1 he was eating a regular diet without any pain with eating or nausea. It was set to be discharged home on postop day 1 in improved condition. Status at Discharge Functional status at discharge: independent ambulation Overall status at discharge: patient is back to baseline Time Spent with Patient Time attestation: Total time spent providing and/or coordinating discharge services: Time spent: Less than 30 minutes Exam Const: General: cooperative and healthy appearing Orientation/consciousness: oriented to person and oriented to place Resp: Effort & Inspection: normal respiratory effort and able to speak in complete sentences Cardio: Rate: regular rate Rhythm: regular rhythm GI: Other: Abdomen soft and nondistended. Port site incisions are healing well without any redness or drainage. Expected mild tenderness to palpation but no severe tenderness in right upper quadrant. Neuro: General: patient oriented x3 Cranial nerves: Yes CN's II-XII intact bilaterally Psych: Appearance: grossly normal and well kempt Mental Status: mental status grossly normal DS: Data Data Completed and Pending Pending studies at discharge: Pending at discharge 06/21/23 09:47 Surgical [PTH] Routine Discharge Plan Discharge Attending physician on discharge: Washington Vora Consulting providers: Bill Barber Discharging Clinician: Washington Vora Patient Disposition: Home, Self-Care Activity: may shower Diet: as tolerated Wound Care Instructions: remove dressing to shower Discharge Instructions: May discharge home when stable. Follow up with Dr. Vora in the office in 2 weeks. Patient to call [phone] for an appointment. May shower in 24hours but do not soak incisions under water for 2 weeks. No lifting more than 10 to 15 lb for 2 weeks. May advance diet as tolerated. No driving for at least 3 days or until no longer taking any narcotic pain medication. Resume all home medications. Prescription for narcotic pain medicines will be sent to the patient's pharmacy if needed. Hemanth
[2023-06-22 08:31] VITALS: O2SAT 97
[2023-06-22] MEDS: ACETAMINOPHEN 500 MG TABLET 1000 MG PO (09:38)
--- NOTE | 2023-06-22 14:25 | WPDANESPN ---
Anes - Prog Note Post-Op Date/Time: 06/22/23 14:25 Cardiovascular status: normal Respiratory status: normal Airway patency: baseline Mental status: baseline Post-Op hydration status: normal Vital Signs: Last Vital Signs Temp 97.4 F L 06/22/23 05:00 Pulse 58 L 06/22/23 05:00 Resp 14 06/22/23 05:00 BP 152/77 H 06/22/23 05:00 Pulse Ox 97 06/22/23 08:31 O2 Del Method Room Air 06/22/23 08:31 O2 Flow Rate 10 06/21/23 10:45 Pain Score (VAS): 0/10 I/O: Intake & Output 06/21/23 06/22/23 06/22/23 23:59 07:59 15:59 Intake Total 490 360 Output Total 300 Balance 490 -300 360 Laboratory Tests 06/21/23 06:17 06/20/23 05:02 Post-procedural complaints: none Patient Feedback: Patient satisfied with anesthetic care.
== END 2023-06-22 10:10 | disposition home or self-care (01) ==
LOC: ANHED 04:52 → ANH3MEDSUR 09:59
PROVIDERS: Admitting Provider Surgery; Emergency Provider Emergency Medicine; Visit Provider Surgery
PROC: 0FT44ZZ Resection of Gallbladder, Percutaneous Endoscopic Approach (ICD-10-PCS; CPT 47562; principal; 2023-06-21 08:30)
DX: K80.12 Calculus of gallbladder with acute and chronic cholecystitis without obstruction (principal); K80.51 Calculus of bile duct without cholangitis or cholecystitis with obstruction; K76.0 Fatty (change of) liver, not elsewhere classified; E66.9 Obesity, unspecified; Z68.34 Body mass index [BMI] 34.0-34.9, adult; F10.90 Alcohol use, unspecified, uncomplicated; Z86.79 Personal history of other diseases of the circulatory system; Z82.49 Family history of ischemic heart disease and other diseases of the circulatory system
CPT/HCPCS: 47562; 36415; 71046; 74177; 76705; 80053; 83690; 84484; 85025; 85610; 85730; 86850; 86900; 86901; 88304; 93005; 96361; 96365; 96374; 96375; 96376; 99285; A9270; C1713; G0378; J1100; J1170; J1885; J2250; J2270; J2371; J2405; J2543; J2704; J7030; J7120; Q9967

== ENCOUNTER 2023-07-04 19:45 | Inpatient (IN) | payer OTHER, SELFPAY ==
--- NOTE | ~2023-07-04 | XR_ITS ---
EXAMINATION: XR ERCP DATE: 07/06/2023 12:21 INDICATION: Choledocholithiasis. TECHNIQUE: 2 spot fluoroscopic images of the right upper quadrant were obtained during endoscopic ret rograde cholangiopancreatography (ERCP). Fluoroscopy exposure time was 102 s. COMPARISON: CT abdomen and pelvis 07/04/22 FINDINGS: The endoscope is in the second portion of the duodenum. There is contrast opacification of the common duct. There are stones in the common duct. Surgical clips in the right upper quadrant are likely from cholecystectomy. IMPRESSION: 1. Choledocholithiasis. Please refer to the ERCP procedure note for additional details. Reviewed, dictated and finalized at location A.
--- NOTE | ~2023-07-04 | CT_ITS ---
CT of the Abdomen and Pelvis: Indication: Abdominal pain, status post cholecystectomy Technique: 2.5 mm axial scans were obtained through the abdomen and pelvis following intravenous adm inistration of 100 cc of Omnipaque 350. Dose reduction technique was used on this scan by utilizing a utomated exposure control and iterative reconstruction technique. The dose-length product (DLP) was 1 304.54 mGy-cm. COMPARISON: 06/20/2023 Findings: Scans through the lung bases are unremarkable. The liver, spleen, pancreas, adrenals and kidneys are within normal limits. Cholecystectomy clips are present. There are several calcified stones in the distal common bile duct, measuring up to 5 mm in diameter each. No sharmila dilatation of the common bile duct evident. Minimal haziness in the gallbladd er fossa region is presumably postoperative in nature. No evidence of aortic aneurysm. No bowel obstruction or bowel wall thickening. There is no evidence to suggest acute appendicitis. Images through the pelvis were performed. Urinary bladder unremarkable. Prostate gland and seminal ve sicles are unremarkable. Stable mildly prominent lymph nodes along the left external iliac/common fem oral chain. No ascites. Impression: Choledocholithiasis, as detailed above. No sharmila dilatation of common bile duct. No sharmila pancreatiti s evident. Stable mildly prominent lymph nodes along the left external iliac/left common femoral chain. Reviewed, dictated and finalized at [facility]. Impression: Choledocholithiasis, as detailed above. No sharmila dilatation of common bile duct . No sharmila pancreatitis evident. Stable mildly prominent lymph nodes along the left external iliac/left common f emoral chain.
[2023-07-04 19:46] VITALS: BP 151/89; PULSE 75; RESP 18; TEMP 36.8; O2SAT 100
--- NOTE | 2023-07-04 20:04 | ECG_ITS ---
Measurements Intervals [place] Rate: 71 P: 21 MS: 158 QRS: -1 QRSD: 94 T: 18 QT: 373 QTc: 407 Interpretive Statements SINUS RHYTHM COMPARED TO ECG 06/20/2023 04:34:06 NO SIGNIFICANT CHANGES Electronically Signed On 07-05-2023 8:32:00 CDT by Pat Patino M.D.
[2023-07-04 20:13] LABS: Basophils Absolute Auto 0.1 K/mm3 (0.0-0.1); Basophils Percent Auto 0.4 % (0.2-1.2); Eosinophils Absolute Auto 0.1 K/mm3 (0-0.3); Eosinophils Percent Auto 0.8 % (0-4.4); Hematocrit 47.4 % (42.0-52.0); Hemoglobin 15.9 g/dL (14.0-18.0); Immature Granulocyte Absolute 0.04 K/mm3 (0.00-0.031); Immature Granulocyte Percent A 0.3 % (0-0.5); Lymphocytes Absolute Auto 2.31 K/mm3 (0.9-3.2); Lymphocytes Percent Auto 19.7 % (18.3-44.2); Mean Corpuscular HGB Conc 33.5 g/dl (32-36); Mean Corpuscular Hemoglobin 32.1 pg (26-34); Mean Corpuscular Volume 95.6 fl (80-100); Mean Platelet Volume 10.7 fl (7.4-10.4); Monocytes Percent Auto 8.4 % (2.6-8.5); Neutrophils Absolute Auto 8.3 K/mm3 (1.3-6.7); Neutrophils Percent Auto 70.4 % (45.5-73.1); Platelet Count Result 251 k/mm3 (150-375); Red Blood Count 4.96 M/mm3 (4.6-6.20); Red Cell Distribution Width 13.5 % (11.5-14.5); White Blood Count 11.7 K/mm3 (4.5-10.0)
[2023-07-04] MEDS: MORPHINE SULFATE (*CRX) 4 MG/ML INJ IV PUSH (20:17)
[2023-07-04] MEDS: ONDANSETRON INJ 4 MG/2 ML VIAL IV PUSH (20:19)
[2023-07-04 20:25] LABS: Alanine Aminotransferase 285 U/L (6-50); Albumin Level 4.4 g/dL (3.5-5.1); Alkaline Phosphatase 416 U/L (38-126); Anion Gap 8 mmol/L (8-16); Aspartate Amino Transferase 184 U/L (17-59); Bilirubin,Total 4.8 mg/dL (0.2-1.3); Blood Urea Nitrogen 18 mg/dL (9-20); Calcium 9.1 mg/dL (8.4-10.2); Carbon Dioxide 29 mmol/L (22-30); Chloride 100 mmol/L (98-107); Estimated CRCL calculation 89 ml/min; Estimated Glomerular Filt Rate > 60; Glucose 105 mg/dL (65-110); Lipase 67 U/L (23-300); Potassium 4.1 mmol/L (3.4-5.0); Sodium 137 mmol/L (137-145)
[2023-07-04 20:36] LABS: Troponin I < 0.012 ng/mL (0.000-0.034)
[2023-07-04 21:37] VITALS: BP 128/70; PULSE 66; RESP 15; O2SAT 100
[2023-07-04] MEDS: PIPERACILLN/TAZ 3.375GM/NS50ML 3.375 GM/50 ML BAG IVPB (21:37)
--- NOTE | 2023-07-04 22:06 | ED.ABDPAIN ---
HPI - Abdominal Pain General Chief Complaint: Abdominal Pain Stated Complaint: abd pain, N/V Time Seen by Provider: 07/04/23 19:53 History of Present Illness HPI narrative: Patient presenting with 2 days of pain to the right upper quadrant/epigastric abdomen, he cannot keep anything down and has been throwing up, he had similar symptoms about 2 weeks ago and had been diagnosed with cholecystitis and had his gallbladder removed. Related Data Allergies Allergy/AdvReac Type Severity Reaction Status Date / Time No Known Allergies Allergy Verified 06/20/23 04:30 Review of Systems Review of Systems: CONST: No fever. HEENT: No sore throat C/V: No chest pain RESP: Shortness of breath due to pain GI: Reports abdominal pain, nausea, vomiting] : No dysuria. M/S: No joint pain. SKIN: No rash. NEURO: [No headache or focal numbness or weakness] PSYCH: [No depression] [facility] Family History Family History Other Family history of cardiovascular disease Hypertension Social History Social History Smoking status: Never smoker Alcohol intake: current Lack of Transportation: No Lack of Food: Never True Current Housing: I Have Housing Concerned About Future Housing: No Difficulty Paying Gas/Electric Bills: No Difficulty Paying for Meds: No Currently Unemployed: No Education: Trade/Vocational Certificate Difficulty w/ Childcare or Family Care: No Spiritual care concerns: No Exam Narrative: EXAMINATION OF ORGAN SYSTEMS/BODY AREAS: Constitutional: Vital signs per nursing GENERAL: Actively retching and looking miserable HEAD: Normal with no signs of head trauma. EYES: EOMI, conjunctiva normal ENT: Hearing grossly intact LUNGS: Nonlabored breathing. HEART: [Regular rate and rhythm] ABD: [Soft], [tender to palpation] right upper quadrant/epigastric abdomen EXT: Normal range of motion SKIN: [No rashes or lesions.] NEURO: [Alert and oriented x 3. No gross focal sensory or strength deficits.] Course Vital Signs Vital signs: Vital Signs Temperature 98.2 F 07/04/23 19:46 Pulse Rate 75 07/04/23 19:46 Respiratory Rate 18 07/04/23 19:46 Blood Pressure 151/89 H 08/05/23 19:46 Pulse Oximetry 100 08/05/23 19:46 Oxygen Delivery Room Air 07/04/23 19:46 Temperature 98.2 F 07/04/23 19:46 Pulse Rate 66 07/04/23 21:37 Respiratory Rate 15 07/04/23 21:37 Blood Pressure 128/70 07/04/23 21:37 Pulse Oximetry 100 07/04/23 21:37 Oxygen Delivery Room Air 07/04/23 19:46 MDM - Abdominal Pain MDM Narrative Medical decision making narrative: Electronic medical record was reviewed. Patient presented to the ED with complaint of [abdominal pain and vomiting]. Vitals [were within acceptable limits]. Physical exam revealed tenderness epigastric/right upper quadrant. Based on the patient's history and physical exam, my differential includes but is not limited to [gastritis, gastroenteritis, cholangitis or choledocholithiasis, pancreatitis, appendicitis]. Also considered ACS. [IV access was established by nursing staff. Patient was given zofran, morphine]. EKG - 12-Lead: Performed at 2037. Interpreted by me. [Sinus rhythm]. Rate 71. [Normal] axis. SC-interval [normal]. QRS duration [normal]. QTc [normal]. [No ST segment elevation or depression]. [T-wave normal]. Impression: No EKG evidence of acute ischemia or dysrhythmia. CBC, BMP, lipase, LFTs, bilirubin and alk phos were obtained. Labs were pertinent for leukocytosis, bilirubin 4.8, AST and ALT and alk phos elevated. [Decision was made to obtain a CT-abdomen to evaluate for acute abdominal process. This is concerning for choledocholithiasis.] On reevaluation, the patient states that they are feeling much better he is now resting comfortably. I have shared the findings with him. Case discussed with GI on-call Dr. Kathleen
--- NOTE | 2023-07-04 22:30 | ADMGEN ---
This patient, Fransisco Allen, was admitted to Medical Room 250-01. Patient/family oriented to hospital policies and general routines including ID bracelet, bed and alarms, visiting hours, pain management, procedures, bathroom and other care routines, personal items, smoking policy, room service/diet, and visiting hours. Information on how to activate the Rapid Response Team has been discussed. Patient/Family are encouraged to report perceived risks to care and to ask questions if they do not understand what they are told or what they should do.
[2023-07-04 22:35] VITALS: BP 137/73; PULSE 60; RESP 18; TEMP 36.9; O2SAT 100
--- NOTE | 2023-07-04 22:50 | PM.IMHP ---
H&P: HPI History of Present Illness Date/Time: 07/04/23 22:50 Chief Complaint: Abdominal pain Narrative: 52-year-old male with past medical history of obesity and acute cholecystitis with choledocholithiasis status post cholecystectomy 06/21/2023 who presented to the ER with epigastric abdominal pain. The patient reports that for the last 3 days he has been having intermittent epigastric abdominal pain that is burning in nature. Today for about 3 hours the pain became so severe and radiated through to his back. He subsequently became concerned and came into the ER. He reports that he had 1 episode of vomiting 3 days ago associated with the pain and then today had a couple of episodes of vomiting before coming in. His emesis was nonbloody and nonbilious. He has not had any fevers or chills. The pain is exactly the same as the pain he had when he had acute cholecystitis on 06/20/2023. He underwent cholecystectomy with Dr. Vora. He stated that he was feeling well until couple of days ago. He has subsequently had poor appetite and the above-mentioned symptoms. He does admit that he has been eating high fat food because that is the only thing that tastes good. The night before presenting to the ER he had eaten mass potatoes and gravy and this morning he ate biscuits and gravy about 3 hours before onset of symptoms. Pain has been intermittent in nature. He denies any changes in bowel habits. His last bowel movement was yesterday. He denies any hematochezia, melena or hematuria. He has been voiding without difficulty. He reports that his pain has resolved at this time and less I am palpating his abdomen and then it is only minor. He reports that today his urine was extremely dark. The sediment from his urine dropped to the bottom of the toilet. His girlfriend also noted that his urine was foamy. The patient stated that this was no different than his usual amount of foam in his urine. He is noted to be obese. His girlfriend who is at bedside states that the patient does snore quite vigorously. He does report symptoms of daytime fatigue. 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 Source of information is patient report and significant other's report. Recent postoperative notes also reviewed. The patient's case was discussed with girlfriend with the patient's permission. Review of Systems Review of Systems: 12 systems were reviewed with pertinent positives and negatives per HPI. Except as documented in the HPI, all other systems were reviewed and are negative. 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 He had his initial knee replacement at that time and then had to have a 2nd knee replacement in 2019 due to infection S/P laparoscopic cholecystectomy Family History Family History (Updated 07/05/23 @ 00:44 by Katelynn Bailey DO) Father Malignant neoplasm of prostate Cancer of kidney Mother Melanoma Sibling Melanoma Social History Social History (Updated 07/05/23 @ 00:46 by Katelynn Bailey DO) Social History: The patient is living with his girlfriend of 1.5 years. 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 He has a [employer] license. He drinks about 1 alcoholic beverage a month. He denies illicit substance use. Code status: Full code Surrogate decision maker: Charissa Aponte (niece) Smoking status: Never smoker Alcohol intake: current Drinks per week: 1 Substance use: never Lack of Transportation: No L
[2023-07-05] MEDS: SODIUM CHLORIDE 0.9% IV 1,000 ML 100 ML IV CONT ×3 (01:59→22:53)
[2023-07-05 04:29] VITALS: BP 135/82; PULSE 68; RESP 17; TEMP 36.5; O2SAT 99
[2023-07-05 04:40] LABS: Appearance Urine Clear (Clear); Bilirubin Urine 2+ (Negative); Blood Urine Negative (Negative); Color Urine Dark Yellow (Yellow); Glucose Urine UA Negative (Negative); Ketones Urine Negative (Negative); Leukocyte Esterase Ur Negative LEU/UL (Negative); Nitrate Urine Negative (Negative); Protein Urine Negative (Negative); Specific Grav Ur 1.035 (1.001-1.035); Urobilinogen Urine >=8.0 mg/dL (<2.0)
[2023-07-05 04:59] LABS: Add Urine Microscopic? NO
[2023-07-05] MEDS: PIPERACILLN/TAZ 3.375GM/NS50ML 3.375 GM/50 ML BAG IVPB ×4 (06:32→22:57)
[2023-07-05] MEDS: PANTOPRAZOLE SODIUM IV 40 MG VIAL IV PUSH (08:15)
[2023-07-05 09:03] LABS: Hematocrit 44.7 % (42.0-52.0); Hemoglobin 14.7 g/dL (14.0-18.0); Mean Corpuscular HGB Conc 32.9 g/dl (32-36); Mean Corpuscular Hemoglobin 31.7 pg (26-34); Mean Corpuscular Volume 96.3 fl (80-100); Mean Platelet Volume 10.7 fl (7.4-10.4); Platelet Count Result 213 k/mm3 (150-375); Red Blood Count 4.64 M/mm3 (4.6-6.20); Red Cell Distribution Width 13.9 % (11.5-14.5); White Blood Count 6.6 K/mm3 (4.5-10.0)
[2023-07-05 09:16] LABS: Alanine Aminotransferase 260 U/L (6-50); Albumin Level 3.7 g/dL (3.5-5.1); Alkaline Phosphatase 385 U/L (38-126); Anion Gap 6 mmol/L (8-16); Aspartate Amino Transferase 126 U/L (17-59); Bilirubin,Total 3.4 mg/dL (0.2-1.3); Blood Urea Nitrogen 14 mg/dL (9-20); Calcium 8.3 mg/dL (8.4-10.2); Carbon Dioxide 27 mmol/L (22-30); Chloride 102 mmol/L (98-107); Cholesterol 196 mg/dL (0-200); Estimated CRCL calculation 90 ml/min; Estimated Glomerular Filt Rate > 60; Glucose 104 mg/dL (65-110); HDL Direct 41 mg/dL; Potassium 4.2 mmol/L (3.4-5.0); Sodium 135 mmol/L (137-145); Triglycerides 143 mg/dL (<150)
[2023-07-05 09:27] LABS: LDL Cholesterol Direct 97 mg/dL
--- NOTE | 2023-07-05 12:07 | WPDGICN ---
Assessment and Plan Assessment and plan (1) Choledocholithiasis: Code(s): K80.50 - Calculus of bile duct without cholangitis or cholecystitis without obstruction Status: Acute Assessment and Plan: CT scan shows stone in the common bile duct. Prior to his cholecystectomy he had had normal liver function studies. I explained him the procedure of ERCP. I explained to he and his with a diagram how the procedure is done and how stones are removed. I discussed with him the possible complications such as bleeding or perforation. Also discussed possibility of pancreatitis which could be severe result in prolonged hospitalization. I explained that in some cases anatomy prevents us from reaching the common bile duct such as when there is an intra diverticular ampulla. (2) Transaminitis: Code(s): R74.01 - Elevation of levels of liver transaminase levels Status: Acute Assessment and Plan: LFTs are slightly better today. (3) Hyperbilirubinemia: Code(s): E80.6 - Other disorders of bilirubin metabolism Status: Acute Assessment and Plan: Bilirubin on admission 4. 8, a little lower today, urine is still dark. I explained to the patient that as long as there is stone in the common bile duct there is a risk of pancreatitis. Plan will schedule for ERCP to be done tomorrow. Procedure was discussed at length with the patient and his significant other. He would like to try mashed potatoes today. I told that if he were to eat he would likely have pain because that would stimulate flow of digestive juices. He understands and is willing to stay on clear liquids. GI Consult Note Consult date/time: 07/05/23 12:07 HPI: Fransisco Allen is a 52 year old male was admitted to the emergency room with severe abdominal pain. For the past 3 days he has been having pain fluctuating but became constant and increasingly severe over the 24 hours prior to his admission. He states morphine that he received has help in fact this morning he had much less pain. He did notice that his urine became dark the last 48 hours, particularly yesterday afternoon. He underwent it on vent full laparoscopic cholecystectomy about 2 weeks ago. He had no prior episodes of biliary colic and at the time of his surgery liver enzymes were normal. Now however he has a bilirubin of 4.8, AST and ALT are elevated at 184 and 285. Alkaline phosphatase is 416. Lipase is normal. CT scan does show a distal common bile duct stone. 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 He had his initial knee replacement at that time and then had to have a 2nd knee replacement in 2019 due to infection S/P laparoscopic cholecystectomy Family History Family History (Updated 07/05/23 @ 00:44 by Katelynn Bailey DO) Father Malignant neoplasm of prostate Cancer of kidney Mother Melanoma Sibling Melanoma Social History Social History Social History: The patient is living with his girlfriend of 1.5 years. 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 He drinks about 1 alcoholic beverage a month. He denies illicit substance use. Code status: Full code Surrogate decision maker: Charissa Díazkai (niece) Smoking status: Never smoker Alcohol intake: current Drinks per week: 1 Substance use: never Lack of Transportation: No Lack of Food: Never True Current Housing: I Have Housing Concerned About Future Housing: No Difficulty Paying Gas/Electric Bills: No Difficulty Paying for
--- NOTE | 2023-07-05 13:11 | PM.IMPN ---
Progress Note: A&P Assessment and Plan (1) Choledocholithiasis: Code(s): K80.50 - Calculus of bile duct without cholangitis or cholecystitis without obstruction Status: Acute Assessment and Plan: Patient with recent cholecystectomy now has CT findings of calcified stones in biliary duct, normal lipase but elevated liver enzymes. Plan is for ERCP tomorrow. (2) Biliary colic: Code(s): K80.50 - Calculus of bile duct without cholangitis or cholecystitis without obstruction Status: Acute Assessment and Plan: Epigastric pain related to stones in biliary duct (3) Transaminitis: Code(s): R74.01 - Elevation of levels of liver transaminase levels Status: Acute Assessment and Plan: Trending down with fluids. Patient tolerating clear liquid diet. (4) Hepatic steatosis: Code(s): K76.0 - Fatty (change of) liver, not elsewhere classified Status: Acute Assessment and Plan: Transaminitis likely due to biliary duct obstruction. Plan Clear liquid diet today. Proceed with ERCP tomorrow. IV fluids. Pain and nausea control. Time Spent With Patient Time with patient: 15 - 25 minutes Subjective Date/time seen: 07/05/23 13:11 Interval history: Patient admitted overnight with GI evaluation and planned ERCP on Friday 07/06. Patient states all of his questions were answered by GI upon evaluation. He states he is tolerating clear liquid diet. He reports his pain and nausea are under control. Review of Systems Review of Systems: All systems reviewed & are unremarkable except as noted in HPI and below Exam Const: General: cooperative and healthy appearing Orientation/consciousness: patient oriented x3 HENMT: Head: normal to inspection Ears: hearing grossly normal bilaterally Mouth: Yes Normal oral and palatal mucosa present Eyes: General: appearance normal, both eyes and all related structures Neck: Neck: normal visual inspection Chest: Chest palpation & inspection: normal inspection of the chest Resp: Effort & Inspection: normal respiratory effort Auscultation: clear to auscultation bilaterally Cardio: Rate: regular rate Rhythm: regular rhythm GI: Inspection: normal to inspection GI Palp: Yes Tenderness to palpation present (GI) ( Epigastric area), No Guarding due to palpation present (GI) and Yes No hepatosplenomegaly present Auscultation: normal bowel sounds Skin: General skin exam: normal color and no jaundice Neuro: General: patient oriented x3 Speech: normal speech Objective Data Vital Signs Vital Signs: Vital Signs - 24 hr 07/04/23 19:46 07/04/23 21:37 07/04/23 22:35 Temperature 36.8 C 36.9 C Pulse Rate 75 66 60 Respiratory Rate 18 15 18 Blood Pressure 151/89 H 128/70 137/73 Pulse Oximetry 100 100 100 Oxygen Delivery Room Air 07/04/23 22:41 07/05/23 04:29 07/05/23 08:10 Temperature 36.5 C Pulse Rate 68 Respiratory Rate 17 Blood Pressure 135/82 Pulse Oximetry 99 Oxygen Delivery Room Air Room Air Intake/Output Intake/Output: Intake & Output 07/02/23 07/03/23 07/04/23 07/05/23 23:59 23:59 23:59 23:59 Intake Total 51 1850 Output Total 400 Balance 51 1450 Meds/Results Medications: Active Medications Generic Name Dose Route Start Last Admin Trade Name Freq PRN Reason Stop Dose Admin Piperacillin/Tazobactam/Dextrose 3.375 gm in 50 mls @ 100 mls/hr 07/05/23 06:00 07/05/23 11:40 Zosyn 3.375 Gm/Ns 50 Ml IVPB Infused Q6HR ADIEL Infusion Sodium Chloride 1,000 mls @ 100 mls/hr 07/05/23 00:50 07/05/23 11:07 Normal Saline Iv IV CONT 100 mls/hr .Q10H ADIEL Administration Morphine Sulfate 2 mg 07/05/23 00:50 Morphine Sulfate (*Crx) 2 Mg/Ml Inj IV PUSH Q4H PRN Pain Rated 7-10 Ondansetron HCl 4 mg 07/04/23 21:36 Ondansetron Inj 4 Mg/2 Ml Vial IV PUSH Q4H PRN Nausea Pantoprazole Sodium 40 mg 07/05/23 09:00 07/05/23 08:15 Pantoprazole Sod
[2023-07-05 14:12] VITALS: BP 125/73; PULSE 72; RESP 16; TEMP 36.4; O2SAT 100
[2023-07-05 20:00] VITALS: PULSE 58; RESP 18; O2SAT 97
[2023-07-05 20:51] VITALS: BP 131/86; PULSE 58; RESP 18; TEMP 36.7; O2SAT 97
[2023-07-06] VITALS (15 sets, daily range): BP systolic 97–155; BP diastolic 57–100; PULSE 48–63; RESP 13–21; TEMP 36.2–36.8; O2SAT 97–100
[2023-07-06] MEDS: PIPERACILLN/TAZ 3.375GM/NS50ML 3.375 GM/50 ML BAG IVPB ×4 (05:27→23:29)
[2023-07-06 05:44] LABS: Hematocrit 44.1 % (42.0-52.0); Hemoglobin 14.8 g/dL (14.0-18.0); Mean Corpuscular HGB Conc 33.6 g/dl (32-36); Mean Corpuscular Hemoglobin 32.5 pg (26-34); Mean Corpuscular Volume 96.7 fl (80-100); Mean Platelet Volume 10.5 fl (7.4-10.4); Platelet Count Result 198 k/mm3 (150-375); Red Blood Count 4.56 M/mm3 (4.6-6.20); Red Cell Distribution Width 13.8 % (11.5-14.5); White Blood Count 7.5 K/mm3 (4.5-10.0)
[2023-07-06 05:55] LABS: Alanine Aminotransferase 203 U/L (6-50); Albumin Level 3.5 g/dL (3.5-5.1); Alkaline Phosphatase 317 U/L (38-126); Anion Gap 6 mmol/L (8-16); Aspartate Amino Transferase 75 U/L (17-59); Blood Urea Nitrogen 10 mg/dL (9-20); Calcium 8.4 mg/dL (8.4-10.2); Carbon Dioxide 25 mmol/L (22-30); Chloride 106 mmol/L (98-107); Estimated CRCL calculation 99 ml/min; Estimated Glomerular Filt Rate > 60; Glucose 100 mg/dL (65-110); Potassium 4.1 mmol/L (3.4-5.0); Sodium 137 mmol/L (137-145)
[2023-07-06] MEDS: PANTOPRAZOLE SODIUM IV 40 MG VIAL IV PUSH (08:40)
[2023-07-06] MEDS: SODIUM CHLORIDE 0.9% IV 1,000 ML 100 ML IV CONT (08:40)
--- NOTE | 2023-07-06 09:05 | PM.IMPN ---
Progress Note: A&P Assessment and Plan (1) Choledocholithiasis: Code(s): K80.50 - Calculus of bile duct without cholangitis or cholecystitis without obstruction Status: Acute Assessment and Plan: 07/05 Patient with recent cholecystectomy now has CT findings of calcified stones in biliary duct, normal lipase but elevated liver enzymes. Plan is for ERCP tomorrow. 07/06 ERCP today, further care per GI recommendations (2) Biliary colic: Code(s): K80.50 - Calculus of bile duct without cholangitis or cholecystitis without obstruction Status: Acute Assessment and Plan: Epigastric pain related to stones in biliary duct (3) Transaminitis: Code(s): R74.01 - Elevation of levels of liver transaminase levels Status: Acute Assessment and Plan: Trending down with fluids. Patient tolerating clear liquid diet. (4) Hepatic steatosis: Code(s): K76.0 - Fatty (change of) liver, not elsewhere classified Status: Acute Assessment and Plan: Transaminitis likely due to biliary duct obstruction. Plan 07/05: Clear liquid diet today. Proceed with ERCP tomorrow. IV fluids. Pain and nausea control. 07/06: ADAT after ERCP, DC fluids when tolerating full diet Time Spent With Patient Time with patient: 15 - 25 minutes Subjective Date/time seen: 07/06/23 09:05 Interval history: 07/05: Patient admitted overnight with GI evaluation and planned ERCP on Friday 07/06. Patient states all of his questions were answered by GI upon evaluation. He states he is tolerating clear liquid diet. He reports his pain and nausea are under control. 07/06: This morning patient states that his pain is better. A he is pending ERCP. Patient had tolerated clear liquid diet before he was placed NPO. No fever or chills. No chest pain or shortness of breath. Review of Systems Review of Systems: All systems reviewed & are unremarkable except as noted in HPI and below Exam Const: General: cooperative and healthy appearing Orientation/consciousness: patient oriented x3 HENMT: Head: normal to inspection Ears: hearing grossly normal bilaterally Mouth: Yes Normal oral and palatal mucosa present Eyes: General: appearance normal, both eyes and all related structures Neck: Neck: normal visual inspection Chest: Chest palpation & inspection: normal inspection of the chest Resp: Effort & Inspection: normal respiratory effort Auscultation: clear to auscultation bilaterally Cardio: Rate: regular rate Rhythm: regular rhythm GI: Inspection: normal to inspection GI Palp: Yes Tenderness to palpation present (GI) ( Epigastric area), No Guarding due to palpation present (GI) and Yes No hepatosplenomegaly present Auscultation: normal bowel sounds Skin: General skin exam: normal color and no jaundice Neuro: General: patient oriented x3 Speech: normal speech Objective Data Vital Signs Vital Signs: Vital Signs - 24 hr 07/05/23 14:12 07/05/23 20:51 07/05/23 20:00 Temperature 36.4 C 36.7 C Pulse Rate 72 58 L 58 L Respiratory Rate 16 18 18 Blood Pressure 125/73 131/86 Pulse Oximetry 100 97 97 Oxygen Delivery Room Air 07/06/23 05:41 Temperature 36.8 C Pulse Rate 61 Respiratory Rate 18 Blood Pressure 139/90 Pulse Oximetry 98 Oxygen Delivery Intake/Output Intake/Output: Intake & Output 07/03/23 07/04/23 07/05/23 07/06/23 23:59 23:59 23:59 23:59 Intake Total 51 4720 1300 Output Total 400 Balance 51 4320 1300 Meds/Results Medications: Active Medications Generic Name Dose Route Start Last Admin Trade Name Freq PRN Reason Stop Dose Admin Piperacillin/Tazobactam/Dextrose 3.375 gm in 50 mls @ 100 mls/hr 07/05/23 06:00 07/06/23 05:57 Zosyn 3.375 Gm/Ns 50 Ml IVPB Infused Q6HR ADIEL Infusion Sodium Chloride 1,000 mls @ 100 mls/hr 07/05/23 00:50 07/06/23 08:40 Normal Saline Iv IV CONT 100 mls/hr .Q10H ADIEL Administration Morphine Sulfate 2 mg
--- NOTE | 2023-07-06 10:18 | PC.NURSE ---
pt off unit for ERCP at this time via wheelchair.
[2023-07-06] MEDS: LACTATED RINGERS 1,000 ML 150 ML IV CONT (10:34)
--- NOTE | 2023-07-06 11:17 | P.PNAN_ITS ---
Anes - Eval Final PreProcedure Day of Procedure 07/06/23 11:17 Patient weight: obese Heart: regular rate and rhythm Lungs: clear to auscultation Airway: Mallampati scale class II Neurological: alert and oriented Last oral intake: >/= 8 hours ASA classification: II Emergent: no Anesthetic plan: proceed Anesthesia type and monitoring: general ETT and standard monitoring Results Review: All pre-operative results and documents have been reviewed as part of the pre- operative evaluation. Informed Consent: The patient's anesthetic plan and its attendant risks and benefits were discussed with the patient/family/POA. Questions were solicited and answers provided to the satisfaction of the patient/family/POA.
[2023-07-06] MEDS: INDOMETHACIN 50 MG SUPP.RECT 100 MG RECTAL (11:43)
[2023-07-07 01:00] VITALS: BP 112/60; PULSE 65; RESP 20; TEMP 36.6; O2SAT 98
[2023-07-07 05:00] VITALS: BP 137/58; PULSE 84; RESP 18; TEMP 36.1; O2SAT 96
[2023-07-07] MEDS: PIPERACILLN/TAZ 3.375GM/NS50ML 3.375 GM/50 ML BAG IVPB (05:27)
[2023-07-07 05:48] LABS: Hematocrit 41.7 % (42.0-52.0); Hemoglobin 13.7 g/dL (14.0-18.0); Mean Corpuscular HGB Conc 32.9 g/dl (32-36); Mean Corpuscular Hemoglobin 31.9 pg (26-34); Mean Platelet Volume 10.6 fl (7.4-10.4); Platelet Count Result 202 k/mm3 (150-375); Red Cell Distribution Width 13.5 % (11.5-14.5)
[2023-07-07 06:00] LABS: Alanine Aminotransferase 140 U/L (6-50); Albumin Level 3.2 g/dL (3.5-5.1); Alkaline Phosphatase 238 U/L (38-126); Anion Gap 8 mmol/L (8-16); Aspartate Amino Transferase 44 U/L (17-59); Bilirubin,Total 0.9 mg/dL (0.2-1.3); Blood Urea Nitrogen 14 mg/dL (9-20); Calcium 8.4 mg/dL (8.4-10.2); Carbon Dioxide 23 mmol/L (22-30); Chloride 107 mmol/L (98-107); Estimated CRCL calculation 90 ml/min; Estimated Glomerular Filt Rate > 60; Glucose 154 mg/dL (65-110); Sodium 138 mmol/L (137-145)
--- NOTE | 2023-07-07 06:43 | WPDGIPROGNO ---
Progress Note: A&P Assessment and Plan (1) Choledocholithiasis: Code(s): K80.50 - Calculus of bile duct without cholangitis or cholecystitis without obstruction Status: Acute Assessment and Plan: CT scan shows stone in the common bile duct. Prior to his cholecystectomy he had had normal liver function studies. I explained him the procedure of ERCP. I explained to he and his with a diagram how the procedure is done and how stones are removed. I discussed with him the possible complications such as bleeding or perforation. Also discussed possibility of pancreatitis which could be severe result in prolonged hospitalization. I explained that in some cases anatomy prevents us from reaching the common bile duct such as when there is an intra diverticular ampulla. (2) Transaminitis: Code(s): R74.01 - Elevation of levels of liver transaminase levels Status: Acute Assessment and Plan: LFTs are slightly better today. 07/07/2023 LFTs trending downward. (3) Hyperbilirubinemia: Code(s): E80.6 - Other disorders of bilirubin metabolism Status: Acute Assessment and Plan: Bilirubin on admission 4. 8, a little lower today, urine is still dark. I explained to the patient that as long as there is stone in the common bile duct there is a risk of pancreatitis. 07/07/2023 bilirubin now back down to normal. Plan will schedule for ERCP to be done tomorrow. Procedure was discussed at length with the patient and his significant other. He would like to try mashed potatoes today. I told that if he were to eat he would likely have pain because that would stimulate flow of digestive juices. He understands and is willing to stay on clear liquids. 07/07/2023 the patient is comfortable in my opinion can be discharged today. I would suggest low-fat diet for about 1 week Subjective Date/time seen: 07/07/23 06:43 he tolerated his full liquid dinner last night. He is not having any pain today except a sore throat from endotracheal tube. Eager to go home. Exam Const: General: cooperative and healthy appearing Orientation/consciousness: patient oriented x3 HENMT: Head: normal to inspection Ears: hearing grossly normal bilaterally Mouth: Yes Normal oral and palatal mucosa present Eyes: General: appearance normal, both eyes and all related structures Neck: Neck: normal visual inspection Chest: Chest palpation & inspection: normal inspection of the chest Resp: Effort & Inspection: normal respiratory effort Auscultation: clear to auscultation bilaterally Cardio: Rate: regular rate Rhythm: regular rhythm GI: Inspection: normal to inspection GI Palp: Yes Tenderness to palpation present (GI) ( Epigastric area), No Guarding due to palpation present (GI) and Yes No hepatosplenomegaly present Auscultation: normal bowel sounds Skin: General skin exam: normal color and no jaundice Neuro: General: patient oriented x3 Speech: normal speech Objective Data Vital Signs Vital Signs: Vital Signs - 24 hr 07/06/23 09:15 07/06/23 10:28 07/06/23 12:25 Temperature 36.2 C L Pulse Rate 59 L 57 L Respiratory Rate 18 21 H Blood Pressure 140/82 97/57 L Pulse Oximetry 98 100 Oxygen Delivery Room Air Room Air Simple Face Mask Oxygen Flow Rate 6 07/06/23 12:32 07/06/23 12:35 07/06/23 12:45 Temperature Pulse Rate 58 L 58 L Respiratory Rate 13 15 Blood Pressure 123/79 127/82 Pulse Oximetry 100 100 Oxygen Delivery Simple Face Mask Simple Face Mask Room Air Oxygen Flow Rate 6 6 07/06/23 12:55 07/06/23 13:05 07/06/23 13:15 Temperature Pulse Rate 54 L 51 L 50 L Respiratory Rate 14 14 15 Blood Pressure 137/81 153/92 H 142/63 H Pulse Oximetry 100 100 100 Oxygen Delivery Room Air Room Air Room Air Oxygen Flow Rate 07/06/23 13:25 07/06/23 13:50 07/06/23 14:05 Temperature 36.4 C L 36.6 C Pulse Rate 50 L 48 L 63 Respiratory Rate 15 16 18 Blood Pre
--- NOTE | 2023-07-07 07:05 | PM.DS ---
DS: Admitting Diagnosis Discharge Date 07/07/2023 Admitting Diagnosis Choledocholithiasis Biliary colic Transaminitis Hepatic steatosis Obesity Snoring Foamy urine DS: Discharge Diagnosis Discharge Diagnosis (1) Choledocholithiasis: Code(s): K80.50 - Calculus of bile duct without cholangitis or cholecystitis without obstruction Status: Acute (2) Transaminitis: Code(s): R74.01 - Elevation of levels of liver transaminase levels Status: Acute (3) Hyperbilirubinemia: Code(s): E80.6 - Other disorders of bilirubin metabolism Status: Acute (4) Biliary colic: Code(s): K80.50 - Calculus of bile duct without cholangitis or cholecystitis without obstruction Status: Acute (5) Hepatic steatosis: Code(s): K76.0 - Fatty (change of) liver, not elsewhere classified Status: Acute DS: Summary Hospital Course Reason for hospitalization: Patient was admitted to the hospital due to choledocholithiasis status post cholecystectomy. Patient had come to the emergency department for 3 days of epigastric pain with several episodes of vomiting. Patient had abnormal labs and CT findings for choledocholithiasis. Hospital Course: Patient was admitted on IV fluids and subsequently had ERCP for stone removal. Patient was able to advance diet yesterday and is pain-free today. Gastroenterology okay with patient being discharged. Hospital stay was uncomplicated. Status at Discharge Cognitive/behavioral status at discharge: Awake alert and oriented Functional status at discharge: independent ambulation Overall status at discharge: patient is back to baseline Time Spent with Patient Time attestation: Total time spent providing and/or coordinating discharge services: Time spent: Less than 30 minutes Exam Const: General: cooperative and healthy appearing Orientation/consciousness: patient oriented x3 HENMT: Head: normal to inspection Ears: hearing grossly normal bilaterally Mouth: Yes Normal oral and palatal mucosa present Eyes: General: appearance normal, both eyes and all related structures Neck: Neck: normal visual inspection Chest: Chest palpation & inspection: normal inspection of the chest Resp: Effort & Inspection: normal respiratory effort Auscultation: clear to auscultation bilaterally Cardio: Rate: regular rate Rhythm: regular rhythm GI: Inspection: normal to inspection GI Palp: Yes Tenderness to palpation present (GI) ( Epigastric area), No Guarding due to palpation present (GI) and Yes No hepatosplenomegaly present Auscultation: normal bowel sounds Skin: General skin exam: normal color and no jaundice Neuro: General: patient oriented x3 Speech: normal speech DS: Data Data Completed and Pending Completed studies during hospitalization: Abdomen pelvis CT scan and ERCP Labs on day of discharge: Labs from last 24 hours 07/07/23 05:26 WBC 10.0 RBC 4.30 L Hgb 13.7 L Hct 41.7 L MCV 97.0 MCH 31.9 MCHC 32.9 RDW 13.5 Plt Count 202 MPV 10.6 H Sodium 138 Potassium 4.0 Chloride 107 Carbon Dioxide 23 Anion Gap 8 BUN 14 Creatinine 1.10 Estim Creat Clear Calc 90 Estimated GFR > 60 Glucose 154 H Calcium 8.4 Total Bilirubin 0.9 AST 44 ALT 140 H Alkaline Phosphatase 238 H Total Protein 6.0 L Albumin 3.2 L Procedures/Treatments: ERCP with stone retrieval Discharge Plan Discharge Attending physician on discharge: Cesia Matta Consulting providers: Chuy Mason; Loc Medrano; Herbert Bocanegra Discharging Clinician: Loc Medrano Anticipated Discharge Date/Time: 07/07/23 10:00 Patient Disposition: Home, Self-Care Activity: as tolerated Diet: low fat Discharge Instructions: Low fat diet for 1 week, no fried foods, no greasy foods Patient Instructions: Low Fat Diet (DC), Pain Management (DC) Stand Alone Forms: General Discharge Information, Work/School Release IP Follow-up/Refe
--- NOTE | 2023-07-07 09:09 | WPDANESPN ---
Anes - Prog Note Post-Op Date/Time: 07/07/23 09:09 Cardiovascular status: normal Respiratory status: normal Airway patency: baseline Mental status: baseline Post-Op hydration status: normal Vital Signs: Last Vital Signs Temp 36.1 C L 07/07/23 05:00 Pulse 84 07/07/23 05:00 Resp 18 07/07/23 05:00 BP 137/58 L 07/07/23 05:00 Pulse Ox 96 07/07/23 05:00 O2 Del Method Room Air 07/06/23 20:00 O2 Flow Rate 6 07/06/23 12:35 Pain Score (VAS): 0 I/O: Intake & Output 07/06/23 07/07/23 07/07/23 23:59 07:59 15:59 Intake Total 370 1650 Output Total 1000 Balance 370 650 Laboratory Tests 07/07/23 05:26 07/07/23 05:26 07/07/23 05:26 WBC 10.0 RBC 4.30 L Hgb 13.7 L Hct 41.7 L MCV 97.0 MCH 31.9 MCHC 32.9 RDW 13.5 Plt Count 202 MPV 10.6 H Sodium 138 Potassium 4.0 Chloride 107 Carbon Dioxide 23 Anion Gap 8 BUN 14 Creatinine 1.10 Estim Creat Clear Calc 90 Estimated GFR > 60 Glucose 154 H Calcium 8.4 Total Bilirubin 0.9 AST 44 ALT 140 H Alkaline Phosphatase 238 H Total Protein 6.0 L Albumin 3.2 L Post-procedural complaints: none Patient Feedback: Patient satisfied with anesthetic care.
[2023-07-07] MEDS: PANTOPRAZOLE SODIUM IV 40 MG VIAL IV PUSH (09:11)
== END 2023-07-07 10:00 | disposition home or self-care (01) | DRG 395 ==
LOC: ANHED 20:08 → ANH2MED 22:04
PROVIDERS: Internal Medicine Gastroenterology; Admitting Provider Internal Medicine; Emergency Provider Emergency Medicine; Visit Provider Nurse Practitioner
PROC: 0FC98ZZ Extirpation of Matter from Common Bile Duct, Via Natural or Artificial Opening Endoscopic (ICD-10-PCS; CPT 43260; principal; 2023-07-06 11:45)
DX: K91.86 Retained cholelithiasis following cholecystectomy (principal); K76.0 Fatty (change of) liver, not elsewhere classified; E66.9 Obesity, unspecified; E80.6 Other disorders of bilirubin metabolism; R82.998 Other abnormal findings in urine; R06.83 Snoring; Z90.49 Acquired absence of other specified parts of digestive tract
CPT/HCPCS: 36415; 74177; 74329; 80053; 80061; 81003; 83690; 84484; 85025; 85027; 93005; 96374; 96375; 99285; A9270; C9113; J0330; J1100; J2270; J2405; J2543; J2704; J7030; J7120; Q9967